=== PATIENT | male | born 1940 ===

== ENCOUNTER 2021-03-09 19:35 | Emergency (ER) | payer OTHER, SELFPAY ==
[~2021-03-09 19:35] MED LIST: Calcium Chloride 1 GM/10 ML Abboject SYRINGE ONE; Iopamidol-370 76% 500 ML 1 ML ONE; Sodium Bicarb 50 MEQ/50 ML Abboject 8.4% SYRINGE ONE
[2021-03-09] MEDS ORDERED: Boostrix 0.5 ML (Tdap) VIAL ONE (19:36)
[2021-03-09] MEDS ORDERED: ceFAZolin 2 GM/DEX 5% 100 ML BAG ONE (19:36)
[2021-03-09 19:50] LABS: #Eosinphils 0.1 thou/uL (0.0-0.7); #Monocytes 0.3 thou/uL (0.11-0.59); #Neutrophils 2.5 thou/uL (1.40-6.50); %Basophils 0.2 % (0.0-1.0); %Eosinophils 1.7 % (0.0-10.0); %Lymphocytes 40.9 % (21.0-51.0); %Monocytes 6.1 % (0.0-10.0); %Neutrophils 51.2 % (42.0-75.0); Hemoglobin 9.6 g/dL (14.0-18.0); Mean Corpuscular Volume 99.9 fL (78.0-98.0); Mean Platelet Volume 6.8 fL (7.4-10.4); Platelet Count 138 thou/uL (130-400); Red Blood Cell (RBC) Count 2.75 mill/uL (4.70-6.10); White Blood Cell (WBC) Count 4.8 thou/uL (4.8-10.8)
[2021-03-09 20:02] LABS: INR-International Normal Ratio 1.3; Prothrombin Time 16.6 sec (12.0-14.7)
[2021-03-09 20:04] LABS: ALT (SGPT) 194 U/L (8-55); AST (SGOT) 254 U/L (5-34); Albumin 2.3 g/dL (3.4-4.8); Alkaline Phosphatase 27 U/L (40-110); Anion Gap 8 mmol/L (10-20); BUN (Urea Nitrogen) 11 mg/dL (8.4-25.7); Bilirubin, Total 0.4 mg/dL (0.2-1.2); Calc. Creatinine Clearance 0 mL/min (70-130); Calcium 6.3 mg/dL (7.8-10.44); Carbon Dioxide 22 mmol/L (23-31); Chloride 107 mmol/L (98-107); Globulin 1.5 g/dL (2.4-3.5); Glucose 109 mg/dL (80-115); Protein, Total 3.8 g/dL (5.8-8.1); Sodium 134 mmol/L (136-145)
[2021-03-09 20:05] LABS: Potassium 2.8 mmol/L (3.5-5.1)
[2021-03-09 20:13] LABS: Alcohol Less than 10 mg/dL (Less than 10); Salicylate Less than 8.0 mg/dL (15.0-30.0)
[2021-03-09] MEDS ORDERED: HYDROmorphone 2 MG/ML VIAL ONE (20:19)
[2021-03-09] MEDS ORDERED: Fentanyl 100 MCG/2 ML VIAL ONE ×3 (20:19→20:35)
[2021-03-09] MEDS ORDERED: Ketamine 50 MG/ML (10ML VIAL) ONE (20:19)
[2021-03-09] MEDS ORDERED: SUGAMMADEX SODIUM 200 MG/2 ML VIAL ONE (20:19)
[2021-03-09] MEDS ORDERED: Sodium Chloride 0.9% 10 ML ONE (20:19)
[2021-03-09] MEDS ORDERED: ePHEDrine Sulfate 50 MG/10 ML VIAL ONE (20:25)
[2021-03-09] MEDS ORDERED: Famotidine/PF 20 mg/2ml Vial ONE (20:25)
[2021-03-09] MEDS ORDERED: Fentanyl CADD 100 ML IV SCH (20:30)
[2021-03-09 20:50] LABS: Actual Bicarbonate (HCO3a) 21.9 mEq/L (22-28); Analyzer IN Cardio ER; Base Excess (BEa) -1.9 mEq/L (-2.0 to +3.0); CO2 Tension 34.1 mmHg (35.0-45.0); Carboxyhemoglobin (COHb) 0.1 gm% (0.0-3.0); Hemoglobin (Hb) 11.9 g/dL (14.0-18.0); O2 Tension (PaO2), arterial 429.4 mmHg (> 70.0); Potassium - ABG Lab 3.54 mmol/L (3.70-5.30); pH, Arterial 7.43 (7.35-7.45)
[2021-03-09 20:51] LABS: ALV-art Gradient 240.975 mmHg (0-20); Puncture Site ALINE
[2021-03-09] MEDS ORDERED: Oxymetazoline HCl 0.05% (30 ML BOT) ONE (21:02)
[2021-03-09] MEDS ORDERED: Ondansetron PF 4 MG/2 ML Vial IVP PRN (21:10)
[2021-03-09] MEDS ORDERED: Dextrose 50% Abboject 50 ML SYRINGE SLOW IVP PRN (21:10)
[2021-03-09] MEDS ORDERED: Dextrose 5% in Water 1,000 ML IV PRN (21:10)
[2021-03-09] MEDS ORDERED: Sodium Chloride 0.9% 1,000 ML IV SCH (21:15)
[2021-03-09] MEDS ORDERED: Acetaminophen 650 MG/20.3 ML UDCUP PER TUBE PRN (21:16)
[2021-03-09 21:42] LABS: Bilirubin Negative (Negative); Blood, Urine 1+ (Negative); Clarity Turbid (Clear); Glucose, Urine (Dipstick) Normal (Negative); Ketone, Urine Negative (Negative); Leukocyte Negative Leu/uL (Negative); Nitrite Negative (Negative); Protein, Urine (Dipstick) 100 mg/dL (Neg-Trace); Specific Gravity, Urine 1.013 (1.002-1.036); Squamous Epithelial 0-3 HPF (0-3); Urobilinogen Normal mg/dL (Less than 2)
[2021-03-09 21:48] LABS: Amphetamine Not Detected (NotDetected); Barbiturates Screen Not Detected (NotDetected); Benzodiazepine Screen Not Detected (NotDetected); Cocaine Metabolite Screen Not Detected (NotDetected); Methadone Not Detected (NotDetected); Methamphetamine Not Detected (NotDetected); Opiate Screen Not Detected (NotDetected); Oxycodone Screen Not Detected (NotDetected); Phencyclidine (PCP) Not Detected (NotDetected); THC/Cannabinoid Screen Not Detected (NotDetected); Tricyclic Screen Not Detected (NotDetected)
[2021-03-09 21:52] LABS: Bacteria/HPF 1+ HPF (None Seen); RBC/HPF 0-3 HPF (0-3); Sperm/HPF 1+ HPF (None Seen); WBC/HPF 0-3 HPF (0-3)
[2021-03-09] MEDS ORDERED: Tranexamic Acid 1,000 MG/10 ML VIAL ONE (21:59)
[2021-03-09 22:19] LABS: SARS-CoV-2 NAA Rapid Test Not Detected (NotDetected)
[2021-03-10] MEDS ORDERED: Famotidine/PF 20 mg/2ml Vial SLOW IVP SCH (09:00)
== END 2021-03-09 22:32 | disposition short-term general hospital (02) ==
LOC: EDBD 19:35 → ERS 19:35
DX: T79.4XXA Traumatic shock, initial encounter (principal); S00.83XA Contusion of other part of head, initial encounter; Z23 Encounter for immunization; V09.20XA Pedestrian injured in traffic accident involving unspecified motor vehicles, initial encounter; Z20.822 Contact with and (suspected) exposure to COVID-19
CPT/HCPCS: 29105; 36430; 36620; 70450; 70486; 70496; 70498; 71045; 71260; 72125; 72170; 74177; 80053; 80306; 80307; 81015; 82805; 83605; 84484; 85025; 85610; 85730; 86850; 86900; 86901; 90471; 90715; 93005; 96374; 96375; 96376; 99292; G0390; J1170; J3010; J7050; P9016; P9048; Q9967; S0028; U0002